=== PATIENT | female | born 1950 | race Caucasian/White ===

== ENCOUNTER 2023-04-09 10:05 | Outpatient (CLI) | payer MEDICARE, BC | END 2023-04-09 10:06 | disposition home or self-care (01) | LOC: CSHMAMMO 10:05 | PROVIDERS: ATTEND Internal Medicine | DX: Z12.31 Encounter for screening mammogram for malignant neoplasm of breast (principal); Z98.890 Other specified postprocedural states | CPT/HCPCS: 77063; 77067 ==

== ENCOUNTER 2024-06-23 11:18 | Outpatient (CLI) | payer MEDICARE, BC | END 2024-06-23 11:19 | disposition home or self-care (01) | LOC: CSHMAMMO 11:18 | PROVIDERS: ATTEND Internal Medicine | DX: Z12.31 Encounter for screening mammogram for malignant neoplasm of breast (principal); Z98.890 Other specified postprocedural states | CPT/HCPCS: 77063; 77067 ==